=== PATIENT | male | born 1980 | race Caucasian/White ===

== ENCOUNTER → 2017-01-03 | Outpatient (CLI) | payer OTHER | LOC: KOH-I 13:46 | DX: M54.2 Cervicalgia (principal); M54.9 Dorsalgia, unspecified; M41.86 Other forms of scoliosis, lumbar region; M41.84 Other forms of scoliosis, thoracic region; R91.8 Other nonspecific abnormal finding of lung field | CPT/HCPCS: 71020; 72050; 72070; 72110 ==